=== PATIENT | female | born 1985 | race Caucasian/White ===

== ENCOUNTER 2023-09-07 15:08 | Emergency (ER) | payer MEDICAID ==
[~2023-09-07] VITALS: Ht 165.1 cm; Wt 82.0 kg
[2023-09-07 15:09] VITALS: O2SAT 100
[2023-09-07 16:05] LABS: HEMATOCRIT. 31.9 % (36.0-48.0); MEAN CORPUSCULAR HEMOGLOBIN 21.9 pg (28.0-32.0); MEAN CORPUSCULAR HGB CONC 31.4 g/dL (31.0-37.0); MEAN CORPUSCULAR VOLUME 69.6 fL (81.0-99.0); MEAN PLATELET VOLUME 7.3 fl (7.4-10.4); PLATELET 401 x1000/uL (130-400); RED BLOOD CELL COUNT 4.58 mill/uL (4.2-5.4); RED CELL DISTRIBUTION WIDTH 17.8 % (11.6-14.6); WHITE BLOOD COUNT 5.7 x1000/uL (4.5-11.0)
[2023-09-07 16:09] LABS: CLARITY URINE CLOUDY (CLEAR); COLOR URINE DARK YELLOW (YELLOW); GLUCOSE URINE NEGATIVE (NEGATIVE); KETONES URINE TRACE (NEGATIVE); LEUKOCYTE ESTERASE URINE NEGATIVE (NEGATIVE); NITRITE URINE NEGATIVE (NEGATIVE); OCCULT BLOOD URINE NEGATIVE (NEGATIVE); PROTEIN URINE 1+ (NEGATIVE); SPECIFIC GRAVITY URINE 1.034 (1.005-1.030)
[2023-09-07 16:14] LABS: HCG SCREEN NEGATIVE
[2023-09-07 16:16] LABS: ALANINE AMINOTRANSFERASE 22 IU/L (10-49); ALBUMIN 4.5 g/dL (3.2-4.8); ASPARTATE AMINOTRANSFERASE 28 IU/L (<34); BILIRUBIN TOTAL 0.3 mg/dL (0.1-1.0); CALCIUM 8.1 mg/dL (8.7-10.4); CARBON DIOXIDE 21 mEq/L (21-32); CHLORIDE 107 mEq/L (98-107); CREATININE 0.6 mg/dL (0.6-1.0); GLUCOSE 87 mg/dL (70-105); POTASSIUM 3.5 mEq/L (3.5-5.1); SODIUM 135 mEq/L (136-145); UREA NITROGEN BLOOD 11 mg/dL (9-23)
[2023-09-07 16:18] LABS: DIFFERENTIAL COMMENT 1
[2023-09-07 16:53] LABS: BACTERIA URINE 2+; RBC URINE 0-2 /hpf (0-2); SQUAMOUS EPITHELIAL CELL URINE 2+ /lpf (RARE/1+); WBC URINE 0-2 /hpf (0-2)
[2023-09-07] MEDS: MAGNESIUM/ALUMINUM HYDROXIDE/SIMETHICONE 30ML UDC PO STA (17:12)
[2023-09-07] MEDS: SODIUM CHLORIDE 0.9% 1,000 ML IV ONE (17:12)
[2023-09-07] MEDS: ONDANSETRON HCL 4MG/2ML INJ IV STA (17:12)
[2023-09-07 17:31] LABS: ANISOCYTOSIS 1+; HYPOCHROMASIA 2+; MICROCYTOSIS 3+; PLATELET ESTIMATE SLIGHTLY INCREASED
[2023-09-07] MEDS ORDERED: IBUP-2029 MT (17:49)
[2023-09-07] MEDS ORDERED: ONDA4TAB50 MT (17:49)
[2023-09-07 17:58] VITALS: BP 116/80; PULSE 69; RESP 16; TEMP 98.2
== END 2023-09-07 17:58 | disposition home or self-care (01) ==
LOC: ER 15:08
DX: R10.811 Right upper quadrant abdominal tenderness (principal)
CPT/HCPCS: 80053; 81003; 84703; 83690; 85025; 36415; 71045; 76705; 96361; 96374; 99285; J2405; J7030; Z7610 ×3